=== PATIENT | male | born 1945 | race Two or more races ===

== ENCOUNTER 2017-02-19 12:47 | Outpatient (CLI) | payer MEDICARE | END 2017-02-19 23:59 | disposition home health service (06) | LOC: WOU 12:47 | PROVIDERS: ATTEND Podiatrist Foot & Ankle Surgery | DX: E11.51 Type 2 diabetes mellitus with diabetic peripheral angiopathy without gangrene (principal); R60.0 Localized edema; L97.829 Non-pressure chronic ulcer of other part of left lower leg with unspecified severity; L97.819 Non-pressure chronic ulcer of other part of right lower leg with unspecified severity; I89.0 Lymphedema, not elsewhere classified; E66.01 Morbid (severe) obesity due to excess calories; Z68.43 Body mass index [BMI] 50.0-59.9, adult; I83.218 Varicose veins of right lower extremity with both ulcer of other part of lower extremity and inflammation; I83.228 Varicose veins of left lower extremity with both ulcer of other part of lower extremity and inflammation; M35.1 Other overlap syndromes; Z79.84 Long term (current) use of oral hypoglycemic drugs; Z79.899 Other long term (current) drug therapy; I10 Essential (primary) hypertension | CPT/HCPCS: 29582-50; A6207; A6402 ==

== ENCOUNTER 2017-02-26 12:42 | Outpatient (CLI) | payer MEDICARE | END 2017-02-26 23:59 | disposition home health service (06) | LOC: WOU 12:42 | PROVIDERS: ATTEND Podiatrist Foot & Ankle Surgery | DX: I89.0 Lymphedema, not elsewhere classified (principal); M35.1 Other overlap syndromes; I87.2 Venous insufficiency (chronic) (peripheral); L97.919 Non-pressure chronic ulcer of unspecified part of right lower leg with unspecified severity; R60.0 Localized edema | CPT/HCPCS: 29580; A6402 ==

== ENCOUNTER 2017-03-05 12:40 | Outpatient (CLI) | payer MEDICARE | END 2017-03-05 23:59 | disposition home health service (06) | LOC: WOU 12:40 | PROVIDERS: ATTEND Podiatrist Foot & Ankle Surgery | DX: I83.893 Varicose veins of bilateral lower extremities with other complications (principal); M35.1 Other overlap syndromes; B35.3 Tinea pedis; E11.9 Type 2 diabetes mellitus without complications; I89.0 Lymphedema, not elsewhere classified | CPT/HCPCS: 29582; A6207; A6402 ==

== ENCOUNTER 2017-03-19 12:50 | Outpatient (CLI) | payer MEDICARE | END 2017-03-19 23:59 | disposition home health service (06) | LOC: WOU 12:50 | PROVIDERS: ATTEND Podiatrist Foot & Ankle Surgery | DX: I87.2 Venous insufficiency (chronic) (peripheral) (principal); R60.0 Localized edema; I89.0 Lymphedema, not elsewhere classified; B35.1 Tinea unguium | CPT/HCPCS: 29582; A6207; A6402 ==

== ENCOUNTER 2017-04-02 13:00 | Outpatient (CLI) | payer MEDICARE | END 2017-04-02 23:59 | disposition home health service (06) | LOC: WOU 13:00 | PROVIDERS: ATTEND Podiatrist Foot & Ankle Surgery | DX: I89.0 Lymphedema, not elsewhere classified (principal); I87.2 Venous insufficiency (chronic) (peripheral); R60.0 Localized edema | CPT/HCPCS: 29582; A6207 ==

== ENCOUNTER 2021-03-14 14:00 | Outpatient (CLI) | payer MEDICARE | END 2021-03-14 23:59 | disposition home health service (06) | LOC: WOU 14:00 | PROVIDERS: ATTEND Podiatrist Foot & Ankle Surgery | DX: L03.116 Cellulitis of left lower limb (principal); R60.0 Localized edema; M79.672 Pain in left foot; E11.9 Type 2 diabetes mellitus without complications; Z79.84 Long term (current) use of oral hypoglycemic drugs | CPT/HCPCS: G0463 ==

== ENCOUNTER 2021-03-21 11:40 | Outpatient (CLI) | payer MEDICARE | END 2021-03-21 23:59 | disposition home or self-care (01) | LOC: RAD 11:40 | PROVIDERS: ATTEND Podiatrist Foot & Ankle Surgery | DX: S90.02XA Contusion of left ankle, initial encounter (principal); M19.072 Primary osteoarthritis, left ankle and foot; M25.775 Osteophyte, left foot; M79.89 Other specified soft tissue disorders; X58.XXXA Exposure to other specified factors, initial encounter; Y93.89 Activity, other specified; Y92.89 Other specified places as the place of occurrence of the external cause; Y99.8 Other external cause status | CPT/HCPCS: 73610-TC; 73630-TC ==

== ENCOUNTER 2021-03-21 12:00 | Outpatient (CLI) | payer MEDICARE | END 2021-03-21 23:59 | disposition home health service (06) | LOC: WOU 12:00 | PROVIDERS: ATTEND Podiatrist Foot & Ankle Surgery | DX: S80.822A Blister (nonthermal), left lower leg, initial encounter (principal); X58.XXXA Exposure to other specified factors, initial encounter; Y92.89 Other specified places as the place of occurrence of the external cause; L03.116 Cellulitis of left lower limb; I87.2 Venous insufficiency (chronic) (peripheral); M79.672 Pain in left foot; R60.0 Localized edema | CPT/HCPCS: G0463 ==